=== PATIENT | male | born 1975 ===

== ENCOUNTER 2021-06-14 09:19 | Emergency (ER) | payer OTHER, SELFPAY ==
[2021-06-14] VITALS (81 sets, daily range): BP systolic 90–114; BP diastolic 53–73; PULSE 54–85; RESP 11–21; O2SAT 94–100; BMI 28.8
--- NOTE | 2021-06-14 09:21 | DI.RAD.S_ITS ---
PROCEDURE: XR CHEST 1V INDICATIONS: chest pain TECHNIQUE: One view of the chest was acquired. COMPARISON: None. FINDINGS: Surgical changes and devices: None. Lungs and pleura: Lungs are clear. No pleural effusions or pneumothorax. Mediastinum: Mediastinal contours appear normal. Heart size is normal. Bones and chest wall: No suspicious bony lesions. Overlying soft tissues appear unremarkable. IMPRESSION: Portable chest within normal limits. Dictated by: Benton Schuler M.D. on 06/14/2021 at 8:39 Approved by: Benton Schuler M.D. on 06/14/2021 at 8:39
[2021-06-14 09:32] LABS: Add Manual Diff / Slide Review NO; Basophils Absolute Auto 0 /uL (0-100); Basophils Percent Auto 0.6 % (0-2); Eosinophils Absolute Auto 0 /uL (0-450); Eosinophils Percent Auto 0.5 % (2-4); Hematocrit 44.6 % (41-53); Hemoglobin 15.2 g/dL (13.5-17.5); Lymphocytes Absolute Auto 1500 /uL (1100-4500); Lymphocytes Percent Auto 40.6 % (25-40); Mean Corpuscular HGB Conc 34.1 % (30-36); Mean Corpuscular Hemoglobin 30.3 PG (26-34); Monocytes Absolute Auto 300 /uL (0-900); Monocytes Percent Auto 9.7 % (3-14); Neutrophils Absolute Auto 1700 /uL (1500-7000); Neutrophils Percent Auto 48.6 % (50-75); Platelet Count 184 X10^3/uL (150-400); Red Blood Cell Count 5.01 X10^6/uL (4.5-5.9); Red Cell Distribution Width 12.8 % (11.6-14.8); White Blood Cell Count 3.6 X10^3/uL (4.5-11.0)
--- NOTE | 2021-06-14 09:36 | ED_ITS ---
HPI - Chest Pain <DO Aimee Alexandra Last Filed: 06/18/21 10:36> General Chief Complaint: Chest Pain Stated Complaint: Chest Pain Time Seen by Provider: 06/14/21 09:21 Source: patient Mode of arrival: EMS Limitations: no limitations History of Present Illness HPI narrative: Patient is a 46-year-old male with history of hyperlipidemia presenting with chest pain. He says that he has had chest discomfort off and on for a while. In fact he lives in [place] and had a stress test they were 3 months ago he said it was fine. However today day he has had 2 days of chest pressure which is fairly constant, but does wax and wane. He cannot pinpoint what happens with exertion or rest he notices discomfort during both. This morning he woke up and his left arm also felt numb. He has no weakness. No shortness of breath. No radiation of pain, chest pressure remains centrally located. He was given aspirin and nitro by EMS pain has improved but is not gone. Related Data Previous Rx's Medication Instructions Recorded aspirin 325 mg tablet 325 mg PO DAILY #30 tab 06/15/21 metoprolol succinate 25 mg 12.5 mg PO DAILY #30 tab 06/15/21 tablet,extended release 24 hr Allergies Allergy/AdvReac Type Severity Reaction Status Date / Time No Known Drug Allergies Allergy Verified 06/14/21 09:23 Review of Systems <DO Aimee Alexandra Last Filed: 06/18/21 10:36> Review of Systems Narrative: GENERAL: Denies chills, fatigue, malaise, fever, sweats, travel HEENT: Denies sinus pain, ear pain, sore throat, difficulty swallowing, neck pain RESPIRATORY: Denies dyspnea, cough, wheezing, hemoptysis, sputum. CARDIOVASCULAR: See HPI GASTROINTESTINAL: Denies nausea, vomiting, abdominal pain, diarrhea, constipation, melena. : Denies dysuria, frequency, incontinence, hematuria, urinary retention, flank pain. MUSCULOSKELETAL: Denies weakness, joint pain, or bony pain SKIN: No rash, no erythema, no pruritus NEUROLOGIC: Denies weakness, dizziness, headache, numbness, change in speech, confusion PSYCHIATRIC: No concerning psychosocial issues. 12 point review of systems is negative except for those stated above and HPI Patient History <DO Aimee Alexandra Last Filed: 06/18/21 10:36> Social History Smoking Status: Never smoker Smoking Status: Never smoker Substance Use Type: does not use Exam <Amanda Stroud DO - Last Filed: 06/18/21 10:36> Initial Vital Signs Initial Vital Signs: Vital Signs Pulse Rate 83 06/14/21 09:21 Respiratory Rate 18 06/14/21 09:21 Blood Pressure 111/72 06/14/21 09:21 Pulse Oximetry 100 06/14/21 09:21 GENERAL: Alert 46-year-old male and in no acute distress. HEENT: Head atraumatic,EOMI, pupils reactive, face symmetric, moist mucous membranes CARDIOVASCULAR: Regular rate and rhythm without murmurs, rubs or gallops. RESPIRATORY: Breath sounds equal bilaterally, no wheezes rales or rhonchi. ABDOMEN: Soft, nontender. Normoactive bowel sounds all 4 quadrants. No guarding or rebound. EXTREMITIES: Normal range of motion, no clubbing or edema. Neurovascularly intact NEUROLOGICAL: Alert and oriented x4.Normal gait and speech. SKIN: Warm, dry, no laceration, no petechiae, no rashes or lesions. <Denise Bain DO - Last Filed: 06/15/21 07:33> Initial Vital Signs Initial Vital Signs: Vital Signs Pulse Rate 83 06/14/21 09:21 Respiratory Rate 18 06/14/21 09:21 Blood Pressure 111/72 06/14/21 09:21 Pulse Oximetry 100 06/14/21 09:21 Scores <Amanda Stroud DO - Last Filed: 06/18/21 10:36> HEART Score Heart Score history: Moderately Suspicious Heart Score EKG: Normal Heart Score Age: 45-64 years old Heart Score risk factors: 1-2 risk factors Heart Score troponin: < or = to normal limit Heart Score Total: 3 <Denise Bain DO - Last Filed: 06/15/21 07:33> HEART Score Heart Score Total: 3 Course <Amanda Stroud DO - Last Filed: 06/18/21 10:36> Orders Ordered: Discontinued Medications Aspirin (Aspirin 81 Mg Chew Tab) 324 mg PO NOW ONE Stop: 06/15/21 01:22 Last Admin: 06/15/21 01:26 Dose: 324 mg Documented by: JADE Heparin Sodium (Porcine) (Heparin 5,000 Unit/Ml Vial) 5,000 unit IV NOW ONE Stop: 06/14/21 18:38 Last Admin: 06/14/21 18:54 Dose: 5,000 unit Documented by: JADE Sodium Chloride (Normal Saline 0.9%) 1,000 mls @ 150 mls/hr IV CONT ANGELIQUE Last Infusion: 06/14/21 17:04 Dose: 0 mls/hr Documented by: Admin: 06/14/21 09:59 Dose: 150 mls/hr Documented by: ARPAN Nitroglycerin (Nitroglycerin) 50 mg in 250 mls @ 1.5 mls/hr IV TITRATE ANGELIQUE; Protocol Last Titration: 06/15/21 01:41 Dose: 0 mcg/min, 0 mls/hr Documented by: Titration: 06/14/21 21:48 Dose: 0 mcg/min, 0 mls/hr Documented by: Admin: 06/14/21 15:32 Dose: 5 mcg/min, 1.5 mls/hr Documented by: EILEEN Heparin Sodium/Dextrose (Heparin Drip) 25,000 unit in 500 mls @ 20 mls/hr IV CONT ANGELIQUE; Protocol Last Titration: 06/15/21 01:41 Dose: 0 units/hr, 0 mls/hr Documented by: Titration: 06/14/21 23:44 Dose: 0 units/hr, 0 mls/hr Documented by: Admin: 06/14/21 18:55 Dose: 1,000 units/hr, 20 mls/hr Documented by: JADE Ketorolac Tromethamine (Ketorolac 30 Mg/Ml Vial) 30 mg IV NOW ONE Stop: 06/14/21 14:04 Last Admin: 06/14/21 14:16 Dose: 30 mg Documented by: EILEEN Nitroglycerin (Nitroglycerin 0.4 Mg Sl Tab) 0.4 mg SL [id number] PRN PRN Reason: Chest Pain Last Admin: 06/14/21 11:19 Dose: 0.4 mg Documented by: Admin: 06/14/21 09:59 Dose: 0.4 mg Documented by: ARPAN Pantoprazole Sodium (Pantoprazole 40 Mg Vial) 40 mg IV NOW ONE Stop: 06/14/21 12:33 Last Admin: 06/14/21 12:47 Dose: 40 mg Documented by: ARPAN Vital Signs Vital signs: Vital Signs - 8 hr 06/14/21 23:30 06/14/21 23:45 06/15/21 00:00 Pulse Rate 65 67 80 Respiratory Rate 12 11 L 18 Blood Pressure 105/65 113/69 117/74 Pulse Oximetry 97 98 98 06/15/21 01:40 Pulse Rate 64 Respiratory Rate Blood Pressure 111/69 Pulse Oximetry 97 <Denise Bain, - Last Filed: 06/15/21 07:33> Orders Ordered: Discontinued Medications Aspirin (Aspirin 81 Mg Chew Tab) 324 mg PO NOW ONE Stop: 06/15/21 01:22 Last Admin: 06/15/21 01:26 Dose: 324 mg Documented by: JADE Heparin Sodium (Porcine) (Heparin 5,000 Unit/Ml Vial) 5,000 unit IV NOW ONE Stop: 06/14/21 18:38 Last Admin: 06/14/21 18:54 Dose: 5,000 unit Documented by: JADE Sodium Chloride (Normal Saline 0.9%) 1,000 mls @ 150 mls/hr IV CONT ANGELIQUE Last Infusion: 06/14/21 17:04 Dose: 0 mls/hr Documented by: Admin: 06/14/21 09:59 Dose: 150 mls/hr Documented by: ARPAN Nitroglycerin (Nitroglycerin) 50 mg in 250 mls @ 1.5 mls/hr IV TITRATE ANGELIQUE; Protocol Last Titration: 06/15/21 01:41 Dose: 0 mcg/min, 0 mls/hr Documented by: Titration: 06/14/21 21:48 Dose: 0 mcg/min, 0 mls/hr Documented by: Admin: 06/14/21 15:32 Dose: 5 mcg/min, 1.5 mls/hr Documented by: EILEEN Heparin Sodium/Dextrose (Heparin Drip) 25,000 unit in 500 mls @ 20 mls/hr IV CONT ANGELIQUE; Protocol Last Titration: 06/15/21 01:41 Dose: 0 units/hr, 0 mls/hr Documented by: Titration: 06/14/21 23:44 Dose: 0 units/hr, 0 mls/hr Documented by: Admin: 06/14/21 18:55 Dose: 1,000 units/hr, 20 mls/hr Documented by: JADE Ketorolac Tromethamine (Ketorolac 30 Mg/Ml Vial) 30 mg IV NOW ONE Stop: 06/14/21 14:04 Last Admin: 06/14/21 14:16 Dose: 30 mg Documented by: EILEEN Nitroglycerin (Nitroglycerin 0.4 Mg Sl Tab) 0.4 mg SL [id number] PRN PRN Reason: Chest Pain Last Admin: 06/14/21 11:19 Dose: 0.4 mg Documented by: Admin: 06/14/21 09:59 Dose: 0.4 mg Documented by: ARPAN Pantoprazole Sodium (Pantoprazole 40 Mg Vial) 40 mg IV NOW ONE Stop: 06/14/21 12:33 Last Admin: 06/14/21 12:47 Dose: 40 mg Documented by: ARPAN Vital Signs Vital signs: Vital Signs - 8 hr 06/14/21 23:30 06/14/21 23:45 06/15/21 00:00 Pulse Rate 65 67 80 Respiratory Rate 12 11 L 18 Blood Pressure 105/65 113/69 117/74 Pulse Oximetry 97 98 98 06/15/21 01:40 Pulse Rate 64 Respiratory Rate Blood Pressure 111/69 Pulse Oximetry 97 MDM - Chest Pain <Amanda Stroud DO - Last Filed: 06/18/21 10:36> Lab Data Result diagrams: 06/14/21 09:27 06/14/21 09:27 Labs: Lab Results 06/14/21 06/14/21 06/14/21 Range/Units 09:27 09:27 09:27 WBC 3.6 L (4.5-11.0) X10^3/uL RBC 5.01 (4.5-5.9) X10^6/uL Hgb 15.2 (13.5-17.5) g/dL Hct 44.6 (41-53) % MCV 89.0 (80-100) fL MCH 30.3 (26-34) PG MCHC 34.1 (30-36) % RDW 12.8 (11.6-14.8) % Plt Count 184 (150-400) X10^3/uL Neut % (Auto) 48.6 L (50-75) % Lymph % (Auto) 40.6 H (25-40) % [place] % (Auto) 9.7 (3-14) % Eos % (Auto) 0.5 L (2-4) % Baso % (Auto) 0.6 (0-2) % Neut # (Auto) 1700 (6339-9368) /uL Lymph # (Auto) 1500 (7519-1673) /uL [place] # (Auto) 300 (0-900) /uL Eos # (Auto) 0 (0-450) /uL Baso # (Auto) 0 (0-100) /uL PT 13.1 H (10.1-12.7) SECONDS INR 1.2 (0.9-1.3) APTT 34 (26.4-36.2) SECONDS D-Dimer (<230) ng/mL Sodium 138 (137-145) mmol/L Potassium 4.2 (3.4-5.1) mmol/L Chloride 102 (98-107) mmol/L Carbon Dioxide 28 (22-32) mmol/L BUN 19 (9-20) mg/dL Creatinine 0.74 (0.66-1.25) mg/dL Estimated GFR > 60.0 (>60) mL/min BUN/Creatinine Ratio 25.7 H (6-22) Glucose 131 H (70-100) mg/dL Calcium 9.8 (8.4-10.2) mg/dL Total Bilirubin 1.7 H (0.2-1.3) mg/dL AST 31 (17-59) IU/L ALT 43 (<50) IU/L Alkaline Phosphatase 80 (38-126) U/L Total Creatine Kinase 128 (55-170) U/L CK-MB (CK-2) 1.21 (<2.37) ng/mL CK-MB (CK-2) Rel Index 0.9 L (1.5-5.0) % Troponin I < 0.012 (0.01-0.034) ng/mL NT-Pro-B Natriuret Pep 42 (<125) pg/mL Total Protein 7.1 (6.3-8.2) g/dL Albumin 4.4 (3.5-5.0) g/dL Globulin 2.7 (1.7-4.1) g/dL Albumin/Globulin Ratio 1.6 (1.0-2.8) Lipase 33 (23-300) U/L SARS-CoV-2 (PCR) (Negative) 06/14/21 06/14/21 06/14/21 Range/Units 09:27 12:51 18:30 WBC (4.5-11.0) X10^3/uL RBC (4.5-5.9) X10^6/uL Hgb (13.5-17.5) g/dL Hct (41-53) % MCV (80-100) fL MCH (26-34) PG MCHC (30-36) % RDW (11.6-14.8) % Plt Count (150-400) X10^3/uL Neut % (Auto) (50-75) % Lymph % (Auto) (25-40) % [place] % (Auto) (3-14) % Eos % (Auto) (2-4) % Baso % (Auto) (0-2) % Neut # (Auto) (8776-3620) /uL Lymph # (Auto) (4627-2938) /uL [place] # (Auto) (0-900) /uL Eos # (Auto) (0-450) /uL Baso # (Auto) (0-100) /uL PT (10.1-12.7) SECONDS INR (0.9-1.3) APTT (26.4-36.2) SECONDS D-Dimer < 200 (<230) ng/mL Sodium (137-145) mmol/L Potassium (3.4-5.1) mmol/L Chloride (98-107) mmol/L Carbon Dioxide (22-32) mmol/L BUN (9-20) mg/dL Creatinine (0.66-1.25) mg/dL Estimated GFR (>60) mL/min BUN/Creatinine Ratio (6-22) Glucose (70-100) mg/dL Calcium (8.4-10.2) mg/dL Total Bilirubin (0.2-1.3) mg/dL AST (17-59) IU/L ALT (<50) IU/L Alkaline Phosphatase (38-126) U/L Total Creatine Kinase (55-170) U/L CK-MB (CK-2) (<2.37) ng/mL CK-MB (CK-2) Rel Index (1.5-5.0) % Troponin I < 0.012 (0.01-0.034) ng/mL NT-Pro-B Natriuret Pep (<125) pg/mL Total Protein (6.3-8.2) g/dL Albumin (3.5-5.0) g/dL Globulin (1.7-4.1) g/dL Albumin/Globulin Ratio (1.0-2.8) Lipase (23-300) U/L SARS-CoV-2 (PCR) Negative (Negative) 06/14/21 06/14/21 Range/Units 18:58 21:47 WBC (4.5-11.0) X10^3/uL RBC (4.5-5.9) X10^6/uL Hgb (13.5-17.5) g/dL Hct (41-53) % MCV (80-100) fL MCH (26-34) PG MCHC (30-36) % RDW (11.6-14.8) % Plt Count (150-400) X10^3/uL Neut % (Auto) (50-75) % Lymph % (Auto) (25-40) % [place] % (Auto) (3-14) % Eos % (Auto) (2-4) % Baso % (Auto) (0-2) % Neut # (Auto) (8003-2556) /uL Lymph # (Auto) (4099-9062) /uL [place] # (Auto) (0-900) /uL Eos # (Auto) (0-450) /uL Baso # (Auto) (0-100) /uL PT (10.1-12.7) SECONDS INR (0.9-1.3) APTT 35 (26.4-36.2) SECONDS D-Dimer (<230) ng/mL Sodium (137-145) mmol/L Potassium (3.4-5.1) mmol/L Chloride (98-107) mmol/L Carbon Dioxide (22-32) mmol/L BUN (9-20) mg/dL Creatinine (0.66-1.25) mg/dL Estimated GFR (>60) mL/min BUN/Creatinine Ratio (6-22) Glucose (70-100) mg/dL Calcium (8.4-10.2) mg/dL Total Bilirubin (0.2-1.3) mg/dL AST (17-59) IU/L ALT (<50) IU/L Alkaline Phosphatase (38-126) U/L Total Creatine Kinase (55-170) U/L CK-MB (CK-2) (<2.37) ng/mL CK-MB (CK-2) Rel Index (1.5-5.0) % Troponin I < 0.012 (0.01-0.034) ng/mL NT-Pro-B Natriuret Pep (<125) pg/mL Total Protein (6.3-8.2) g/dL Albumin (3.5-5.0) g/dL Globulin (1.7-4.1) g/dL Albumin/Globulin Ratio (1.0-2.8) Lipase (23-300) U/L SARS-CoV-2 (PCR) (Negative) Imaging Data Chest x-ray: Radiologist's Impression: PROCEDURE: XR CHEST 1V INDICATIONS: chest pain TECHNIQUE: One view of the chest was acquired. COMPARISON: None. FINDINGS: Surgical changes and devices: None. Lungs and pleura: Lungs are clear. No pleural effusions or pneumothorax. Mediastinum: Mediastinal contours appear normal. Heart size is normal. Bones and chest wall: No suspicious bony lesions. Overlying soft tissues appear unremarkable. IMPRESSION: Portable chest within normal limits. Dictated by: Benton Schuler M.D. on 06/14/2021 at 8:39 Approved by: Benton Schuler M.D. on 06/14/2021 at 8:39 CT scan - chest: Radiologist's Impression: PROCEDURE: CT ANGIO CHEST ABDOMEN PELVIS INDICATIONS: persistent chest pain TECHNIQUE: Precontrast 5 mm thick sections acquired from the lung apices to the iliac crests. After the administration of intravenous contrast, 2.5 mm thick sections again acquired from the lung apices to the iliac crests. Maximum intensity projection (MIP) oblique sagittal and coronal reformats were then acquired. For radiation dose reduction, the following was used: automated exposure control. COMPARISON: [facility], XR CHEST 1V, 06/14/2021, 9:27. FINDINGS: Image quality: Excellent. AORTA: On precontrast imaging, no findings of mural hematomas can be seen. On postcontrast imaging, no findings of aortic aneurysm or dissection can be seen. No periaortic inflammatory changes are seen. CHEST: Lungs and pleura: No acute airspace opacities. No pleural effusions or pneumothorax. Central and peripheral airways are patent and normal in caliber. Mediastinum: Heart size is normal. No pericardial effusion. No mediastinal or hilar adenopathy by size criteria. Central pulmonary arteries are normal in size. Esophagus is normal in caliber. No hiatal hernias. Bones and chest wall: No axillary adenopathy by size criteria. Thyroid gland demonstrates no significant abnormality. No suspicious bony lesions. No vertebral body compression fractures. ABDOMEN: Vasculature: Celiac trunk and mesenteric arteries are patent. Renal arteries are also patent. Solid organs: Liver is normal in size and enhancement. Gallbladder wall is not thickened. Biliary system is non dilated. Pancreas enhances normally. Spleen is normal in size and enhancement. No adrenal nodules. Both kidneys are normal in size and enhancement, without hydronephrosis. Peritoneum and bowel: No free fluid or air. Bowel loops are normal in caliber and wall thickness. A normal appendix is incidentally noted. Nodes and vessels: No retroperitoneal or mesenteric adenopathy by size criteria. Inferior vena cava is normal in morphology. Miscellaneous: No ventral hernias. PELVIS: Genitourinary: Bladder wall thickness is normal. Miscellaneous: No adenopathy. Mild bilateral fat containing inguinal hernias are seen. No ventral hernias. Bones: No suspicious bony lesions. No vertebral body compression fractures. IMPRESSION: Normal aorta, without findings dissection or aneurysm. Incidental note is made of: Normal appendix Mild bilateral fat containing inguinal hernias Dictated by: Benton Schuler M.D. on 06/14/2021 at 16:49 ECG Data Interpretation: EKG 1. Sinus rhythm rate 80 p.r. interval 136 QRS [address] changes or T-wave inversions no priors to compare EKG 2. Sinus rhythm rate 64 MT interval 142 QRS [address] changes MDM Narrative Medical decision making narrative: Patient has had nitroglycerin in the emergency department pain ranges from 0 to 3 comes and goes. Blood pressure is now in the 90s after nitroglycerin. A troponin is negative after 2 days of chest discomfort. Second troponin also negative. However patient's symptoms that have been ongoing for number of weeks and then worsening over the last 2 days anything this morning with radiation to his left arm certainly concerning for cardiac disease. He has been given nitroglycerin in the emergency department which does seem to help. He cannot remember what hospital he was at admission when he had a stress test unable to receive the records, but eventually found of hard we tried for 2 hours to get records but or 6 Low risk for PE, and dimer is negative 12:10 Dr. Laurent, hospitalist, states patient does not need admitted, has low heart score and recent negative stress test. 13:00 Dr. Cook, cardiology, agrees with hospitalist, no need for repeat stress test or admission. Patient's pain continues to arise. He is put on nitroglycerin drip which seems to help and improve it. Currently chest pain-free on nitroglycerin.CT angio is negatvie for dissection. 1732 Dr. Donahue, cardiology at [facility] with increasing chest pressure or chest pressure coming and going on a nitroglycerin drip does need further testing recommends coronary CTA. Unfortunately no beds are available in [place]. Multiple other facilities have been called, Nathanael Henley [facility] will call us back Patient signed out to Dr. Bain for further management <Denise Bain, - Last Filed: 06/15/21 07:33> Lab Data Labs: Lab Results 06/14/21 06/14/21 06/14/21 Range/Units 09:27 09:27 09:27 WBC 3.6 L (4.5-11.0) X10^3/uL RBC 5.01 (4.5-5.9) X10^6/uL Hgb 15.2 (13.5-17.5) g/dL Hct 44.6 (41-53) % MCV 89.0 (80-100) fL MCH 30.3 (26-34) PG MCHC 34.1 (30-36) % RDW 12.8 (11.6-14.8) % Plt Count 184 (150-400) X10^3/uL Neut % (Auto) 48.6 L (50-75) % Lymph % (Auto) 40.6 H (25-40) % [place] % (Auto) 9.7 (3-14) % Eos % (Auto) 0.5 L (2-4) % Baso % (Auto) 0.6 (0-2) % Neut # (Auto) 1700 (5073-6766) /uL Lymph # (Auto) 1500 (9536-6702) /uL [place] # (Auto) 300 (0-900) /uL Eos # (Auto) 0 (0-450) /uL Baso # (Auto) 0 (0-100) /uL PT 13.1 H (10.1-12.7) SECONDS INR 1.2 (0.9-1.3) APTT 34 (26.4-36.2) SECONDS D-Dimer (<230) ng/mL Sodium 138 (137-145) mmol/L Potassium 4.2 (3.4-5.1) mmol/L Chloride 102 (98-107) mmol/L Carbon Dioxide 28 (22-32) mmol/L BUN 19 (9-20) mg/dL Creatinine 0.74 (0.66-1.25) mg/dL Estimated GFR > 60.0 (>60) mL/min BUN/Creatinine Ratio 25.7 H (6-22) Glucose 131 H (70-100) mg/dL Calcium 9.8 (8.4-10.2) mg/dL Total Bilirubin 1.7 H (0.2-1.3) mg/dL AST 31 (17-59) IU/L ALT 43 (<50) IU/L Alkaline Phosphatase 80 (38-126) U/L Total Creatine Kinase 128 (55-170) U/L CK-MB (CK-2) 1.21 (<2.37) ng/mL CK-MB (CK-2) Rel Index 0.9 L (1.5-5.0) % Troponin I < 0.012 (0.01-0.034) ng/mL NT-Pro-B Natriuret Pep 42 (<125) pg/mL Total Protein 7.1 (6.3-8.2) g/dL Albumin 4.4 (3.5-5.0) g/dL Globulin 2.7 (1.7-4.1) g/dL Albumin/Globulin Ratio 1.6 (1.0-2.8) Lipase 33 (23-300) U/L SARS-CoV-2 (PCR) (Negative) 06/14/21 06/14/21 06/14/21 Range/Units 09:27 12:51 18:30 WBC (4.5-11.0) X10^3/uL RBC (4.5-5.9) X10^6/uL Hgb (13.5-17.5) g/dL Hct (41-53) % MCV (80-100) fL MCH (26-34) PG MCHC (30-36) % RDW (11.6-14.8) % Plt Count (150-400) X10^3/uL Neut % (Auto) (50-75) % Lymph % (Auto) (25-40) % [place] % (Auto) (3-14) % Eos % (Auto) (2-4) % Baso % (Auto) (0-2) % Neut # (Auto) (2866-8468) /uL Lymph # (Auto) (2377-3531) /uL [place] # (Auto) (0-900) /uL Eos # (Auto) (0-450) /uL Baso # (Auto) (0-100) /uL PT (10.1-12.7) SECONDS INR (0.9-1.3) APTT (26.4-36.2) SECONDS D-Dimer < 200 (<230) ng/mL Sodium (137-145) mmol/L Potassium (3.4-5.1) mmol/L Chloride (98-107) mmol/L Carbon Dioxide (22-32) mmol/L BUN (9-20) mg/dL Creatinine (0.66-1.25) mg/dL Estimated GFR (>60) mL/min BUN/Creatinine Ratio (6-22) Glucose (70-100) mg/dL Calcium (8.4-10.2) mg/dL Total Bilirubin (0.2-1.3) mg/dL AST (17-59) IU/L ALT (<50) IU/L Alkaline Phosphatase (38-126) U/L Total Creatine Kinase (55-170) U/L CK-MB (CK-2) (<2.37) ng/mL CK-MB (CK-2) Rel Index (1.5-5.0) % Troponin I < 0.012 (0.01-0.034) ng/mL NT-Pro-B Natriuret Pep (<125) pg/mL Total Protein (6.3-8.2) g/dL Albumin (3.5-5.0) g/dL Globulin (1.7-4.1) g/dL Albumin/Globulin Ratio (1.0-2.8) Lipase (23-300) U/L SARS-CoV-2 (PCR) Negative (Negative) 06/14/21 06/14/21 Range/Units 18:58 21:47 WBC (4.5-11.0) X10^3/uL RBC (4.5-5.9) X10^6/uL Hgb (13.5-17.5) g/dL Hct (41-53) % MCV (80-100) fL MCH (26-34) PG MCHC (30-36) % RDW (11.6-14.8) % Plt Count (150-400) X10^3/uL Neut % (Auto) (50-75) % Lymph % (Auto) (25-40) % [place] % (Auto) (3-14) % Eos % (Auto) (2-4) % Baso % (Auto) (0-2) % Neut # (Auto) (1288-2948) /uL Lymph # (Auto) (8221-4292) /uL [place] # (Auto) (0-900) /uL Eos # (Auto) (0-450) /uL Baso # (Auto) (0-100) /uL PT (10.1-12.7) SECONDS INR (0.9-1.3) APTT 35 (26.4-36.2) SECONDS D-Dimer (<230) ng/mL Sodium (137-145) mmol/L Potassium (3.4-5.1) mmol/L Chloride (98-107) mmol/L Carbon Dioxide (22-32) mmol/L BUN (9-20) mg/dL Creatinine (0.66-1.25) mg/dL Estimated GFR (>60) mL/min BUN/Creatinine Ratio (6-22) Glucose (70-100) mg/dL Calcium (8.4-10.2) mg/dL Total Bilirubin (0.2-1.3) mg/dL AST (17-59) IU/L ALT (<50) IU/L Alkaline Phosphatase (38-126) U/L Total Creatine Kinase (55-170) U/L CK-MB (CK-2) (<2.37) ng/mL CK-MB (CK-2) Rel Index (1.5-5.0) % Troponin I < 0.012 (0.01-0.034) ng/mL NT-Pro-B Natriuret Pep (<125) pg/mL Total Protein (6.3-8.2) g/dL Albumin (3.5-5.0) g/dL Globulin (1.7-4.1) g/dL Albumin/Globulin Ratio (1.0-2.8) Lipase (23-300) U/L SARS-CoV-2 (PCR) (Negative) MDM Narrative Medical decision making narrative: Patient has had nitroglycerin in the emergency department pain ranges from 0 to 3 comes and goes. Blood pressure is now in the 90s after nitroglycerin. A troponin is negative after 2 days of chest discomfort. Second troponin also negative. However patient's symptoms that have been ongoing for number of weeks and then worsening over the last 2 days anything this morning with radiation to his left arm certainly concerning for cardiac disease. He has been given nitroglycerin in the emergency department which does seem to help. He cannot remember what hospital he was at admission when he had a stress test unable to receive the records, but eventually found of hard we tried for 2 hours to get records but or 6 Low risk for PE, and dimer is negative 12:10 Dr. Laurent, hospitalist, states patient does not need admitted, has low heart score and recent negative stress test. 13:00 Dr. Cook, cardiology, agrees with hospitalist, no need for repeat str ess test or admission. Patient's pain continues to arise. He is put on nitroglycerin drip which seems to help and improve it. Currently chest pain-free on nitroglycerin.CT angio is negatvie for dissection. 173 Dr. Donahue, cardiology at [facility] states with increasing chest pressure or chest pressure coming and going on a nitroglycerin drip does need further testing recommends coronary CTA. Unfortunately no beds are available in [place]. Multiple other facilities have been called, [facility], [facility] will call us back Patient signed out to Dr. Bain for further management Patient signed out to myself by Dr. Stroud. Patient was seen and evaluated by self. Patient's history was reviewed and examined by myself as well. Patient's initial 2 troponins were negative with no acute EKG changes. Patient possibly had a stress test which was negative. Estelita spoke with 2 kiln charger 1 recommended calcium channel scoring another felt patient was appropriate for discharge. Continue to look for bed placement. No beds are available except at [place] and spoke with kiln charger who recommends putting patient on aspirin 324 mg, low-dose beta-gagan and continuing his statin with medical management and follow up with Cardiology outpatient. Discussed with patient at this time if he wishes to pursue in patient evaluation and happy to continue to seek a bed for him and he is on wait list at [facility]. We did discuss that we have had contradictory recommendations from kiln charger and and that with repeat troponin EKG at the 9 are maosn which are still negative seems less likely patient is having acute coronary event but is not an absolute. Discussed risk/benefits with the patient. After long discussion patient elects to be discharged. We did discuss that I do not feel comfortable with him returning to see that he needs to be somewhere with accessible health care. Patient was started on aspirin, metoprolol 2.5 mg daily and discontinue his statin. He is comfortable with this plan I filled out paperwork for him and his work is in process to arrange transportation for the patient. Discharge Plan Departure Patient Disposition: Home Clinical Impression: Atypical chest pain Instructions: DI for Atypical Chest Pain Activity Restrictions/Additional Instructions: You do need to follow-up with cardiology for recheck and further evaluation/workup. Included is referral for local cardiology but you may follow-up with your cardiology in [place]. 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 But I do failure stable enough to be discharged today. Your case was discussed with multiple kiln charger but we are unable to transfer here today secondary to bed availability. There or differences of opinion between kiln charger's about the best course of your care. As discussed you are recommended to be on a full-dose aspirin 324 mg, as well as a low-dose beta-gagan daily. You should continue your Lipitor as prescribed. Prescriptions are included for both medications. Please start these today. I do ask return here the closest emergency department if you have new or worsening chest pain, shortness of breath, diaphoresis or sweatiness, lightheadedness or passing out, persistent vomiting, new swelling in her extremities or other new or concerning symptoms. Prescriptions: New aspirin 325 mg tablet 325 mg PO DAILY Qty: 30 RF: 0 metoprolol succinate 25 mg tablet extended release 24 hr 12.5 mg PO DAILY Qty: 30 RF: 0 Referrals: Snehal Cook MD [Physician] - Stand Alone Forms: Work Release Note
[2021-06-14 09:39] LABS: INR 1.2 (0.9-1.3); Prothrombin Time 13.1 SECONDS (10.1-12.7)
[2021-06-14 09:42] LABS: PTT Partial Thromboplastin Tim 34 SECONDS (26.4-36.2)
[2021-06-14 09:43] LABS: Alanine Aminotransferase 43 IU/L (<50); Albumin 4.4 g/dL (3.5-5.0); Albumin Globulin Ratio 1.6 (1.0-2.8); Alkaline Phosphatase 80 U/L (38-126); Aspartate Aminotransferase 31 IU/L (17-59); BUN Creatinine Ratio 25.7 (6-22); Bilirubin Total 1.7 mg/dL (0.2-1.3); Blood Urea Nitrogen 19 mg/dL (9-20); Calcium 9.8 mg/dL (8.4-10.2); Carbon Dioxide 28 mmol/L (22-32); Chloride 102 mmol/L (98-107); Creatine Kinase 128 U/L (55-170); Estimated Glomerular Filt Rate > 60.0 mL/min (>60); Globulin 2.7 g/dL (1.7-4.1); Glucose 131 mg/dL (70-100); HEMOLYSIS < 15 (0-50); Lipase 33 U/L (23-300); Potassium 4.2 mmol/L (3.4-5.1); Sodium 138 mmol/L (137-145); Total Protein 7.1 g/dL (6.3-8.2)
[2021-06-14 09:55] LABS: NT-proBNP (BNP-Adult 18+) 42 pg/mL (<125); Troponin I < 0.012 ng/mL (0.01-0.034)
[2021-06-14 09:58] LABS: CKMB % Relative Index 0.9 % (1.5-5.0); Creatine Kinase MB 1.21 ng/mL (<2.37)
[2021-06-14] MEDS: SODIUM CHLORIDE 0.9% 1,000 ML 150 ML IV (09:59)
[2021-06-14] MEDS: NITROGLYCERIN 0.4 MG SL TAB SL ×2 (09:59→11:19)
--- NOTE | 2021-06-14 11:20 | PC.NURSE ---
dr maldonado requested 2nd nitro now and ekg. rec'd/noted.
[2021-06-14] MEDS: PANTOPRAZOLE 40 MG VIAL IV (12:47)
[2021-06-14 13:22] LABS: Troponin I < 0.012 ng/mL (0.01-0.034)
[2021-06-14 13:29] LABS: D Dimer < 200 ng/mL (<230)
[2021-06-14] MEDS: KETOROLAC 30 MG/ML VIAL IV (14:16)
[2021-06-14] MEDS: NITROGLYCERIN 50 MG/250 ML INFUS..BTL IV (15:32)
--- NOTE | 2021-06-14 17:04 | DI.CT.S_ITS ---
PROCEDURE: CT ANGIO CHEST ABDOMEN PELVIS INDICATIONS: persistent chest pain TECHNIQUE: Precontrast 5 mm thick sections acquired from the lung apices to the iliac crests. After the administration of intravenous contrast, 2.5 mm thick sections again acquired from the lung apices to the iliac crests. Maximum intensity projection (MIP) oblique sagittal and coronal reformats were then acquired. For radiation dose reduction, the following was used: automated exposure control. COMPARISON: [facility], CR, XR CHEST 1V, 06/14/2021, 9:27. FINDINGS: Image quality: Excellent. AORTA: On precontrast imaging, no findings of mural hematomas can be seen. On postcontrast imaging, no findings of aortic aneurysm or dissection can be seen. No periaortic inflammatory changes are seen. CHEST: Lungs and pleura: No acute airspace opacities. No pleural effusions or pneumothorax. Central and peripheral airways are patent and normal in caliber. Mediastinum: Heart size is normal. No pericardial effusion. No mediastinal or hilar adenopathy by size criteria. Central pulmonary arteries are normal in size. Esophagus is normal in caliber. No hiatal hernias. Bones and chest wall: No axillary adenopathy by size criteria. Thyroid gland demonstrates no significant abnormality. No suspicious bony lesions. No vertebral body compression fractures. ABDOMEN: Vasculature: Celiac trunk and mesenteric arteries are patent. Renal arteries are also patent. Solid organs: Liver is normal in size and enhancement. Gallbladder wall is not thickened. Biliary system is non dilated. Pancreas enhances normally. Spleen is normal in size and enhancement. No adrenal nodules. Both kidneys are normal in size and enhancement, without hydronephrosis. Peritoneum and bowel: No free fluid or air. Bowel loops are normal in caliber and wall thickness. A normal appendix is incidentally noted. Nodes and vessels: No retroperitoneal or mesenteric adenopathy by size criteria. Inferior vena cava is normal in morphology. Miscellaneous: No ventral hernias. PELVIS: Genitourinary: Bladder wall thickness is normal. Miscellaneous: No adenopathy. Mild bilateral fat containing inguinal hernias are seen. No ventral hernias. Bones: No suspicious bony lesions. No vertebral body compression fractures. IMPRESSION: Normal aorta, without findings dissection or aneurysm. Incidental note is made of: Normal appendix Mild bilateral fat containing inguinal hernias Dictated by: Benton Schuler M.D. on 06/14/2021 at 16:49 Approved by: Benton Schuler M.D. on 06/14/2021 at 16:52
[2021-06-14] MEDS: HEPARIN 5,000 UNIT/ML VIAL 5000 UNIT IV (18:54)
[2021-06-14] MEDS: HEPARIN DRIP 25,000 UNIT/500 ML IV.SOLN 20 UNIT IV (18:55)
[2021-06-14 19:11] LABS: PTT Partial Thromboplastin Tim 35 SECONDS (26.4-36.2)
[2021-06-14 19:21] LABS: COVID19 - ADMIT (NP swab/PCR) Negative (Negative)
--- NOTE | 2021-06-14 21:48 | PC.NURSE ---
Pts ntg gtt stopped per Dr Bain. His bp was 91/51. Will recheck bp
[2021-06-14 22:21] LABS: Troponin I < 0.012 ng/mL (0.01-0.034)
[2021-06-15] VITALS: BP 117/74; PULSE 80; RESP 18; O2SAT 98
--- NOTE | 2021-06-15 01:20 | PC.NURSE ---
Provider had cleared patient for discharge. have been talking with pt's work to assist with getting him discharged.
[2021-06-15] MEDS: ASPIRIN 81 MG CHEW TAB 324 MG PO (01:26)
[2021-06-15 01:40] VITALS: BP 111/69; PULSE 64; O2SAT 97
== END 2021-06-15 01:59 | disposition home or self-care (01) ==
PROVIDERS: Emergency Medicine; Emergency Provider Emergency Medicine
DX: R07.89 Other chest pain (principal); R79.89 Other specified abnormal findings of blood chemistry; Z20.822 Contact with and (suspected) exposure to COVID-19
CPT/HCPCS: 36415; 71045; 71275; 74174; 80053; 82550; 82553; 83690; 83880; 84484; 85025; 85379; 85610; 85730; 87635; 93005; 96361; 96365; 96366; 96367; 96375; 99284; C9803; C9113; J1644; J1885; Q9967